=== PATIENT | male | born 1985 | race Caucasian/White ===

== ENCOUNTER 2016-10-11 17:51 | Inpatient (IN) | payer MEDICAID ==
[~2016-10-11] VITALS: Ht 175.3 cm; Wt 68.0 kg
--- NOTE | 2016-10-11 17:51 | NUR ---
1745--PT BIBA TO BED 3 AT THIS TIME
[2016-10-11 17:52] VITALS: BP 146/96
--- NOTE | 2016-10-11 17:52 | NUR ---
Pt arrived in C-spine precautions with hard C-collar in place. ED Physician notified.
--- NOTE | 2016-10-11 17:55 | NUR ---
31 YO MALE BIB EMS FROM HOME EXPERIENCED SPONTANOUS NOSE BLEED AND THEN HAD SYNCOPAL EPISODE. AAOx4 ON ARRIVAL. PT STATES HE HAS HX OF LUNG CA. PERRLA, BREATHING EVEN AND UNLABORED. PAIN 2/10 NECK PAIN DUE TO SYNCOPAL EPISODE. ERMD NOTIFIED OF PATIENT STATUS.
--- NOTE | 2016-10-11 17:58 | NUR ---
Patient being evaluated by physician at bedside.
--- NOTE | 2016-10-11 18:20 | NUR ---
PT RESTING, FAMILY AT BEDSIDE; PATIENTRESTING, FAMILY AT BEDISDE; VSS; PATIENT POSITIONED FOR COMFORT; BEDRAILS UP X2; BED DOWN. ER MD MADE AWARE OF PT STATUS.
[2016-10-11 18:25] LABS: BASOPHILS # (AUTO) 0.1 K/uL (0.00-0.22); BASOPHILS % (AUTO) 1.3 % (0.0-2.0); EOSINOPHILS # (AUTO) 0.1 K/uL (0-0.4); HEMATOCRIT 46.3 % (36-52); HEMOGLOBIN 15.1 g/dL (12.0-18.0); LYMPHOCYTES % (AUTO) 22.4 % (20.5-51.1); MEAN CORPUSCULAR HEMOGLOBIN 28 pg (27-31); MEAN CORPUSCULAR HGB CONC 33 g/dL (33-37); MEAN CORPUSCULAR VOLUME 87 fL (80-94); MONOCYTES % (AUTO) 11.6 % (1.7-9.3); NEUTROPHILS # (AUTO) 5.8 K/uL (1.8-7.7); NEUTROPHILS % (AUTO) 63.7 % (42.2-75.2); PLATELET COUNT (AUTO) 279 K/uL (140-450); RED BLOOD CELL COUNT(AUTO) 5.32 MIL/uL (4.20-6.10); RED CELL DISTRIBUTION WIDTH 13.2 % (11.6-13.7)
--- NOTE | 2016-10-11 18:29 | NUR ---
PT TAKEN TO RADIOLOGY VIA GURNEY BY X-RAY [facility].
[2016-10-11 18:40] LABS: ANION GAP 9.2 (8-16); CARBON DIOXIDE 30.6 mmol/L (21-32); CHLORIDE 103 mmol/L (98-107); CREATININE 1.2 mg/dL (0.6-1.3); GFR ARICAN-AMERICAN 91 mL/min (>90); GFR NON ARICAN-AMERICAN 76 mL/min (>90); GLUCOSE 95 mg/dL (74-106); POTASSIUM 3.8 mmol/L (3.5-5.1); SODIUM SERUM 139 mmol/L (136-145); UREA NITROGEN, BLOOD 16 mg/dL (7-18)
--- NOTE | 2016-10-11 18:44 | NUR ---
PT RETURNED FROM RADIOLOGY VIA [facility] BY [employer].
[2016-10-11 18:45] LABS: INR 1.1 (0.8-1.2); PROTHROMBIN TIME 10.8 secs (10.8-13.4)
[2016-10-11 18:47] LABS: ACETAMINOPHEN 0.5 ug/ml (10-30); ALANINE AMINOTRANSFERASE 23 U/L (12-78); ALBUMIN 3.3 g/dL (3.4-5.0); ALCOHOL, BLOOD < 3 mg/dL (<3); ALKALINE PHOSPHATASE 48 U/L (46-116); ASPARTATE AMINOTRANSFERASE 15 U/L (15-37); CREATINE KINASE, TOTAL 70 U/L (39-308); SALICYLATE < 2.8 mg/dL (2.8-20.0); TOTAL BILIRUBIN 0.2 mg/dL (0.0-1.0); TOTAL PROTEIN, SERUM 6.4 g/dL (6.4-8.2)
[2016-10-11 19:04] LABS: AMPHETAMINE, URINE POS. ng/ml (NEG <=1000); BARBITURATE, URINE NEG. ng/ml (NEG <=200); BENZODIAZEPINE, URINE NEG. ng/mL (NEG <=200); CANNABINOID, URINE NEG. ng/mL (NEG <=50); COCAINE, URINE NEG. ng/mL (NEG <=300); OPIATE, URINE NEG. ng/mL (NEG <=2000); PHENCYCLIDINE SCREEN,URINE NEG. ng/mL (NEG <=25)
--- NOTE | 2016-10-11 19:05 | NUR ---
Pt report given to PITER STROUD. Transfer of care at this time.
--- NOTE | 2016-10-11 19:08 | NUR ---
PT RESTING IN BED, SLEEPING,ON THE MONITOR, VSS. NO S/S OF DISTRESS NOTED AT THIS MOMENT. FAMILY AT BEDSIDE.
[2016-10-11] MEDS ORDERED: HYDROmorphone 1 MG/ML AMP IVP ONE (20:05)
--- NOTE | 2016-10-11 20:15 | NUR ---
Patient will be admitted to care of [facility]. Admited to TELEMETRY. Will go to room 111A. Belongings list completed. Report to PITER MALCOLM.
--- NOTE | 2016-10-11 20:30 | NUR ---
PT TRASFEERED TO TELEMETRY FLOOR. ACCOMPANIED BY RN AND EMT. STRATIGRAPHER IN BED. NO S/S OF DISTRESS NOTED DURING TRASFER.
[2016-10-11] MEDS ORDERED: ACETAMINOPHEN 325 MG TAB PO PRN (20:50)
[2016-10-11] MEDS ORDERED: DOCUSATE SODIUM 100 MG GELCAP PO PRN (20:50)
[2016-10-11] MEDS ORDERED: LORazepam 2 MG/ML VIAL IVP PRN (20:50)
[2016-10-11] MEDS ORDERED: ONDANSETRON 4 MG/2 ML VIAL IVP PRN (20:50)
[2016-10-11 21:00] VITALS: BP 113/72
--- NOTE | 2016-10-11 21:00 | NUR ---
ADMITTED 31 Y/O MALE TO TELE FROM ER AT 2024 PM WITH DX: SEIZURE. INITIAL ASSESSMENT, BODY CHECK AND ADMISSION INTERVENTION DONE. PATIENT AAO X 4, ABLE TO FOLLOW COMMAND AND MAKE NEEDS KNOWN AND AMBULATORY BY SELF WITH STEADY GAIT. NO S/S OF DISTRESS NOR SEIZURE NOTED UPON ADMISSION. SKIN WARM/DRY TO TOUCH WITH NORMAL COLOR AND INTACT. LUNG SOUNDS CLEAR TO ALL LOBES. INSTRUCTED PATIENT TO UNIT/ENVIRONMENT. ALSO, DISCUSSED PLAN OF CARE, PAIN MANAGEMENT AND MEDICATION REGIMEN WITH PATIENT AND PATIENT VERBALIZED UNDERSTANDING. PLACED PATIENT ON SEIZURE/SAFETY PRECAUTIONS AND WILL CONTINUE TO MONITOR. CALL LIGHT LEFT WITHIN REACH. GRANDMOTHER AT BEDSIDE.
[2016-10-11 21:22] LABS: CHOL/HDL RATIO 3.1 (1-4.5); MAGNESIUM 1.8 mg/dL (1.8-2.4); PHOSPHORUS 4.6 mg/dL (2.5-4.9)
[2016-10-11] MEDS: NACL 0.9% 1,000 ML IV SCH (21:29)
[2016-10-11] MEDS: MORPHINE SULFATE 2 MG/ML SYR IVP PRN (21:29)
[2016-10-11 21:32] LABS: AMPHETAMINE, URINE POS. ng/ml (NEG <=1000); BARBITURATE, URINE NEG. ng/ml (NEG <=200); BENZODIAZEPINE, URINE NEG. ng/mL (NEG <=200); CANNABINOID, URINE NEG. ng/mL (NEG <=50); COCAINE, URINE NEG. ng/mL (NEG <=300); OPIATE, URINE NEG. ng/mL (NEG <=2000); PHENCYCLIDINE SCREEN,URINE NEG. ng/mL (NEG <=25)
[2016-10-11 21:39] LABS: THYROID STIMULATING HORMONE 0.98 uIU/mL (0.34-3.76)
--- NOTE | 2016-10-11 22:16 | NUR ---
ADMINISTERED IVF AND PAIN MEDICATION FOR C/O LOWER BACK AND CHEST PAIN WITH EDUCATION GIVEN. ALSO GAVE 1 PAIR OF SANDWICH AND ICE-WATER PER REQUESTED. PATIENT CONSUMED 100 % AND TOLERATED WELL. ALL NEEDS ARE ATTENDED. PLACED PATIENT IN COMFORTABLE POSITION/WARM AND WILL CONTINUE TO MONITOR.
[2016-10-12] VITALS: BP 102/49
--- NOTE | 2016-10-12 00:14 | NUR ---
ROUNDS MADE, SEEN PATIENT RESTED COMFORTABLY IN BED, EASILY AROUSED AND REMAINED IN STABLE CONDITION. NO ANY POTENTIAL COMPLICATION NOTED. WILL CONTINUE TO MONITOR.
--- NOTE | 2016-10-12 03:50 | NUR ---
PATIENT IS CLINICALLY STABLE WITH UNCHANGED V/S. WILL CONTINUE TO MONITOR.
[2016-10-12 04:00] VITALS: BP 95/58
[2016-10-12] MEDS: NACL 0.9% 1,000 ML IV SCH ×2 (04:20→15:02)
--- NOTE | 2016-10-12 07:20 | NUR ---
RECEIVED PATIENT REPORT AT BEDSIDE. NO S/S OF DISTRESS NOTED. PATIENT ASLEEP BUT EASILY AROUSABLE. FAMILY MEMBER PRESENT AT BEDSIDE. SEIZURE PRECAUTIONS IN PLACE. IV TO THE LEFT AC INTACT WITH IVF INFUSING WELL. PATIENT ON TELE MONITORING. BED LOWERED WITH CALL LIGHT WITHIN REACH. WILL CONTINUE TO MONITOR
--- NOTE | 2016-10-12 07:22 | NUR ---
PATIENT RESTED WELL THROUGHOUT THE SHIFT AND REMAINED IN STABLE CONDITION WITHOUT APPARENT DISTRESS NOTED. ENDORSED PLAN OF CARE TO PITER LOZOYA, AT BEDSIDE.
--- NOTE | 2016-10-12 07:53 | NUR ---
PATIENT HAS BEEN SCREENED AND CATEGORIZED LOW NUTRITION RISK. PATIENT WILL BE SEEN WITHIN 7 DAYS OF ADMISSION. 10/18/[address]
[2016-10-12 08:00] VITALS: BP 105/63
[2016-10-12] MEDS ORDERED: ATORVASTATIN 20 MG TAB PO SCH ×2 (10:50→11:00)
[2016-10-12] MEDS ORDERED: ECOTRIN 81 MG TABEC PO SCH ×2 (10:50→11:00)
--- NOTE | 2016-10-12 11:00 | NUR ---
PATIENT LEFT FOR CT
--- NOTE | 2016-10-12 11:57 | NUR ---
PT C/O OF 610 BACK PAIN. HEART RATE AT 55. PATIENT OFFERED TYLENOL BUT REFUSED
[2016-10-12 12:00] VITALS: BP 101/60
[2016-10-12] MEDS: MORPHINE SULFATE 2 MG/ML SYR IVP PRN (12:10)
[2016-10-12] MEDS ORDERED: ALBUTEROL SULFATE/IPRATROPIU 3 ML SOL IH PRN (15:35)
[2016-10-12 16:00] VITALS: BP 124/71
--- NOTE | 2016-10-12 16:00 | NUR ---
PATIENT REFUSED TO BE BATHED
--- NOTE | 2016-10-12 18:11 | NUR ---
ASKED CONSENT FROM THE PATIENT TO OBTAIN MEDICAL RECORDS FROM [facility] BUT PATIENT DENIES BEING THERE. DR EVANGELISTA NOTIFIED
--- NOTE | 2016-10-12 19:30 | NUR ---
RECEIVED REPORT FROM DAY RN AT BEDSIDE, PATIENT IS SLEEPING IN BED, EASILY AWOKEN, PATIENT AAOX4, ON ROOM AIR, NO SOB OR SIGN OF DISTRESS AT THIS TIME, PATIENT DENIES PAIN, IV TO LAC PATENT AND INTACT WITH IVF INFUSING WELL. SKIN IS INTACT. DISCUSSED PLAN OF CARE WITH PATIENT, PATIENT VERBALIZED UNDERSTANDING, SAFETY MEASURES CHECKED, PATIENT ON SEIZURE PRECAUTIONS, CALL LIGHT WITHIN REACH. WILL CONTINUE TO MONITOR.
--- NOTE | 2016-10-12 19:30 | NUR ---
ENDORSED CONTINUITY OF CARE TO THE NIGHT NURSE. PATIENT IN STABLE IN CONDITION
[2016-10-12 20:00] VITALS: BP 109/70
[2016-10-12] MEDS: CLOTRIMAZOLE 1% 30 GM CRM TUBE TP SCH (20:56)
[2016-10-13] VITALS (7 sets, daily range): BP systolic 103–135; BP diastolic 49–78
--- NOTE | 2016-10-13 00:30 | NUR ---
PATIENT AWAKE RESTING IN BED, NO SOB OR SIGN OF DISTRESS, VITAL SIGNS STABLE, DENIES PAIN, CALL LIGHT WITHIN REACH. WILL CONTINUE TO MONITOR.
[2016-10-13] MEDS: NACL 0.9% 1,000 ML IV SCH ×3 (00:41→18:20)
--- NOTE | 2016-10-13 02:17 | NUR ---
PATIENT SLEEPING, NO SOB OR SIGN OF DISTRESS AT THIS TIME, CALL LIGHT WITHIN REACH. WILL CONTINUE TO MONITOR.
--- NOTE | 2016-10-13 04:15 | NUR ---
PATIENT SLEEPING, AWAKES EASILY, NO SIGN OF DISTRESS, CALL LIGHT WITHIN REACH. WILL CONTINUE TO MONITOR.
--- NOTE | 2016-10-13 06:10 | NUR ---
PATIENT SLEEPING, NO SOB OR SIGN OF DISTRESS, CALL LIGHT WITHIN REACH. WILL CONTINUE TO MONITOR.
[2016-10-13 06:50] LABS: BASOPHILS # (AUTO) 0.2 K/uL (0.00-0.22); BASOPHILS % (AUTO) 2.4 % (0.0-2.0); EOSINOPHILS # (AUTO) 0.1 K/uL (0-0.4); EOSINOPHILS % (AUTO) 1.9 % (0.0-4.0); HEMATOCRIT 44.5 % (36-52); HEMOGLOBIN 14.7 g/dL (12.0-18.0); LYMPHOCYTES # (AUTO) 2.4 K/uL (2.0-11.5); LYMPHOCYTES % (AUTO) 31.7 % (20.5-51.1); MEAN CORPUSCULAR HEMOGLOBIN 29 pg (27-31); MEAN CORPUSCULAR HGB CONC 33 g/dL (33-37); MEAN CORPUSCULAR VOLUME 88 fL (80-94); MONOCYTES # (AUTO) 0.9 K/uL (0.8-1.0); MONOCYTES % (AUTO) 12.5 % (1.7-9.3); NEUTROPHILS % (AUTO) 51.5 % (42.2-75.2); PLATELET COUNT (AUTO) 259 K/uL (140-450); RED BLOOD CELL COUNT(AUTO) 5.05 MIL/uL (4.20-6.10); RED CELL DISTRIBUTION WIDTH 13.4 % (11.6-13.7); WHITE BLOOD COUNT (AUTO) 7.6 K/uL (4.8-10.8)
[2016-10-13 07:01] LABS: ANION GAP 8.6 (8-16); CALCIUM 7.5 mg/dL (8.5-10.1); CARBON DIOXIDE 29.5 mmol/L (21-32); CREATININE 0.8 mg/dL (0.6-1.3); POTASSIUM 4.1 mmol/L (3.5-5.1)
[2016-10-13 07:07] LABS: MAGNESIUM 1.7 mg/dL (1.8-2.4); PHOSPHORUS 3.8 mg/dL (2.5-4.9)
--- NOTE | 2016-10-13 07:20 | NUR ---
ENDORSED PATIENT TO DAY SHIFT RN AT BEDSIDE, PATIENT IS IN STABLE CONDITION.
--- NOTE | 2016-10-13 07:21 | NUR ---
RECEIVED REPORT FROM THE AUDIO VISUAL COLLECTIONS COORDINATOR NURSE AT BEDSIDE FOR CONTINUITY OF CARE. PT IS ASLEEP. WILL NOT WAKE HIM. WILL CHECK ON HIM LATER. NOTED THAT THE IV IS SL. PER RN, PT WANTED THE IV DISCONTINUE WHILE HE SLEPT. NOTED NO SIGNS OF DISTRESS. ALL SAFETY MEASURES IN PLACE. WILL CONTINUE TO MONITOR PT.
--- NOTE | 2016-10-13 08:05 | NUR ---
PT STILL ASLEEP. TELE MONITOR STATED HIS HR WAS LOW. I WOKE HIM UP AND INTRODUCED MYSELF AND UPDATED THE BOARD. DID HIS VITALS. ALL WITHIN NORMAL RANGE. I TOLD HIM HIS BREAKFAST WAS HERE BUT HE WAS NOT INTERESTED IN EATING. HE WANTS TO JUST SLEEP. I TOLD HIM I WILL BE BACK IN ABOUT AN HOUR FOR HIS MORNING MEDS. WILL CONTINUE TO MONITOR PT.
--- NOTE | 2016-10-13 09:00 | NUR ---
SPOKE TO DR. EVANGELISTA ABOUT PT'S LOW MAG LEVEL. DR. DENSON.
[2016-10-13] MEDS: ECOTRIN 81 MG TABEC PO SCH (09:01)
[2016-10-13] MEDS: ATORVASTATIN 20 MG TAB PO SCH (09:02)
[2016-10-13] MEDS: CLOTRIMAZOLE 1% 30 GM CRM TUBE TP SCH ×2 (09:03→20:41)
--- NOTE | 2016-10-13 09:50 | NUR ---
RESTARTED THE HEPARIN DRIP, LOWERED THE RATE TO 19ML/HR. IS HERE. ANSWERED ALL QUESTIONS. SHE WANTED SOME CLEAN TOWELS AND A NEW GOWN. SUPPLIED THEM TO HER. PT IS STABLE. WILL CONTINUE TO MONITOR PT. Addendum: 10/13/16 at 1014 by Sigrid Sy RN WRONG PT.
--- NOTE | 2016-10-13 10:17 | NUR ---
PT SLEEPING SOUNDLY WILL CONTINUE TO MONITOR PT.
[2016-10-13] MEDS: MAGNESIUM OXIDE 400 MG TAB PO SCH ×2 (10:31→20:41)
--- NOTE | 2016-10-13 11:00 | NUR ---
WOKE UP AND WANTED A SNACK. ORDERED HIM A TUNA [employer] SANDWICH. ATE AND WENT BACK TO SLEEP. GRANDPARENT AT BEDSIDE. WILL CONTINUE TO MONIOTOR PT.
--- NOTE | 2016-10-13 13:32 | NUR ---
PT SLEEPING. FINISHED 100% OF LUNCH. WENT RIGHT BACK TO SLEEP. NO SIGNS OF DISTRESS. WILL CONTINUE TO MONITOR PT.
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
--- NOTE | 2016-10-13 16:27 | NUR ---
PT RESTING IN BED. GIRLFRIEND AND GRANDMOTHER AT BEDSIDE. WILL CONTINUE TO MONITOR PT.
[2016-10-13] MEDS: MORPHINE SULFATE 2 MG/ML SYR IVP PRN ×2 (18:15→23:48)
--- NOTE | 2016-10-13 19:05 | NUR ---
ENDORSED PT TO THE MARKETING CONSULTANT NURSE AT BEDSIDE FOR CONTINUITY OF CARE. PT IS IN STABLE CONDITION. GRANDMA WILL STAY WITH HIM OVER NIGHT. PAIN IS BETTER.
--- NOTE | 2016-10-13 19:27 | NUR ---
RECEIVED IN BED AWAKE AND ALERT. ORIENTED X 4. NO SOB. DENIES PAIN AT THIS TIME. TELEMETRY MONITORING. CALL LIGHT WITH IN REACH. CARE PLAN FOR THE NIGHT DISCUSSED WITH HIM. VISITOR AT BEDSIDE. ENCOURAGED TO CALL FOR ANY HEL0P HE MAY NEED. WITH PADDED SIDERAILS RT SEIZURE PRECAUTIONS.
--- NOTE | 2016-10-13 22:21 | NUR ---
PT. SLEEPING AT THIS TIME. NO RESTLESSNESS NOTED. ON TELEMETRY MONITORING. WITH PADDED SIDERAILS FOR SEIZURE PRECAUTIONS. ABLE TO USE CALL LIGHT FOR HELP.
--- NOTE | 2016-10-13 23:59 | NUR ---
WOKE UP AND REQUESTED FOR PAIN RELIEVER. MEDICATED REQUESTED. NO FURTHER COMPLAINTS DONE. TELEMETRY MONITORING.
--- NOTE | 2016-10-14 00:38 | NUR ---
PT. AWAKE AT THIS TIME. MOTHER AT BEDSIDE AND REQUESTED FOR SNACK. PROVIDED WITH SANDWICH AND ORANGE DRINK . NO FURTHER REQUEST MADE. USES CALL LIGHT FOR HELP.
[2016-10-14] MEDS: NACL 0.9% 1,000 ML IV SCH ×2 (03:26→12:32)
--- NOTE | 2016-10-14 04:00 | NUR ---
PT. REQUESTED TO HAVE IVF STOPPED. REFUSED TO HAVE IT HOOKED BACK. PREFERS TO DRINK . PROS AND CONS EXPLAINED TO PT. MOTHER AT BEDSIDE STILL. TELEMETRY MONITORING. NO SEIZURES NOTED.
[2016-10-14 04:56] VITALS: BP 122/68
--- NOTE | 2016-10-14 06:31 | NUR ---
SLEPT WELL THIS SHIFT. NO UNTOWARD INCIDENT. CALL LIGHT WITH IN REACH AT ALL TIMES. NO SEIZURES THIS SHIFT. ON TELEMETRY MONITORING.
--- NOTE | 2016-10-14 07:05 | NUR ---
RECEIVED REPORT FROM THE DONKEY RIDE OPERATOR NURSE AT BEDSIDE FOR CONTINUITY OF CARE. PT IS SOUND ASLEEP. NO SIGNS OF DISTRESS. WILL CONTINUE TO MONITOR PT.
[2016-10-14 07:10] LABS: ALBUMIN 3.1 g/dL (3.4-5.0); ANION GAP 6.8 (8-16); CALCIUM 7.9 mg/dL (8.5-10.1); CARBON DIOXIDE 32.4 mmol/L (21-32); MAGNESIUM 1.8 mg/dL (1.8-2.4); PHOSPHORUS 4.1 mg/dL (2.5-4.9); POTASSIUM 4.2 mmol/L (3.5-5.1)
--- NOTE | 2016-10-14 07:55 | NUR ---
WOKE UP PT. RE-INTRODUCED MYSELF, UPDATED THE BOARD. I ASKED HIM WHERE GRANDMA WAS. SHE WENT TO THE [place] PER PT. PT'S IV ON L AC IS SL. V/S WITHIN NORMAL RANGE. STILL SB. ONCE DC ORDER IS IN PLACE, WILL START ON DC TODAY. NOTIFIED PT REGARDING DC TODAY. PT AWARE. HASN'T TOUCHED HIS BREAKFAST YET. CALL LIGHT WITHIN REACH. WILL CONTINUE TO MONITOR PT.
[2016-10-14 08:00] VITALS: BP 106/79
[2016-10-14] MEDS: CLOTRIMAZOLE 1% 30 GM CRM TUBE TP SCH (09:11)
[2016-10-14] MEDS: ECOTRIN 81 MG TABEC PO SCH (09:11)
[2016-10-14] MEDS: ATORVASTATIN 20 MG TAB PO SCH (09:11)
--- NOTE | 2016-10-14 09:45 | NUR ---
PT SLEEPING. NO SIGNS OF DISTRESS. WILL CONTINUE TO MONITOR PT.
--- NOTE | 2016-10-14 11:16 | NUR ---
PT IS SLEEPING. GRANDMOTHER SLEEPING AT HIS SIDE. NO SIGNS OF DISTRESS. WILL CONTINUE TO MONITOR PT.
[2016-10-14 12:00] VITALS: BP 119/70
[2016-10-14] MEDS ORDERED: LORA-476 PO (12:33)
--- NOTE | 2016-10-14 13:15 | NUR ---
PT RESTING COMFORTABLY WITH GRANDMA AT BEDSIDE. NO COMPLAINTS AT THIS TIME. WILL CONTINUE TO MONITOR PT.
[2016-10-14] MEDS: MORPHINE SULFATE 2 MG/ML SYR IVP PRN (13:23)
--- NOTE | 2016-10-14 15:30 | NUR ---
GAVE PT D/C INSTRUCTIONS AT BEDSIDE. GRANDMOTHER PRESENT. ANSWERED ALL QUESTIONS. PT AND GRANDMOTHER VERBALIZED UNDERSTANDING. HE WILL F/U WITH A PCP IN A CLINIC IN [place]. [facility]. A [employer]MON[employer] MEMBER WILL COME CENTER MEDICAL SPECIALIST PT AND GRANDMOTHER AT 4:40-5PM. REMOVED IV, CANNULA INTACT. REMOVED ARM BANDS. PT WILL GET DRESSED INTO HIS OWN CLOTHES. WILL GET HIS PERSONAL BELONGINGS TOGETHER. WILL BE READY WHEN RIDE GETS HERE. WILL LET ME KNOW WHEN HE IS READY TO GO SO THAT WE CAN WHEEL HIM OUT.
[2016-10-14 16:00] VITALS: BP 118/65
--- NOTE | 2016-10-14 17:00 | NUR ---
PT WAS WHEELED OUT, ACCOMPANIED BY GRANDMA AND SENIOR DIRECTOR INSIGHT. PT IS IN STABLE CONDITION. PT HAS ALL HIS PERSONAL BELONGINGS WITH HIM.
== END 2016-10-14 17:00 | disposition home or self-care (01) | DRG 52 ==
LOC: MED 17:51 → MTU 19:59
PROVIDERS: ADMIT Family Medicine; ATTEND Family Medicine
DX: G92 Toxic encephalopathy (principal); R56.9 Unspecified convulsions; E44.0 Moderate protein-calorie malnutrition; E83.42 Hypomagnesemia; E83.51 Hypocalcemia; B35.3 Tinea pedis; B35.4 Tinea corporis; F17.210 Nicotine dependence, cigarettes, uncomplicated; F15.188 Other stimulant abuse with other stimulant-induced disorder; W18.30XA Fall on same level, unspecified, initial encounter; Z68.22 Body mass index [BMI] 22.0-22.9, adult; Q16.1 Congenital absence, atresia and stricture of auditory canal (external); Z72.89 Other problems related to lifestyle; Z59.0 Homelessness; Y93.89 Activity, other specified; Y92.091 Bathroom in other non-institutional residence as the place of occurrence of the external cause; Y99.8 Other external cause status; Z85.118 Personal history of other malignant neoplasm of bronchus and lung; Z81.8 Family history of other mental and behavioral disorders; Z71.51 Drug abuse counseling and surveillance of drug abuser
CPT/HCPCS: 36415; 70450; 71010; 71250; 72125; 80048; 80053; 80305; 82040; 82150; 82550; 83036; 83605; 83690; 83735; 83880; 84100; 84443; 84484; 85025; 85610; 85730; 87081; 93005; 93880; 96374; 99285; G0480; G0482; J1170; J2270; J7030; Q0092

== ENCOUNTER 2017-04-09 00:30 | Emergency (ER) | payer SELFPAY ==
[~2017-04-09] VITALS: Ht 167.6 cm; Wt 61.5 kg
[~2017-04-09 00:30] MED LIST: LORA-476 PO
--- NOTE | 2017-04-09 00:36 | NUR ---
called pt in lobby for triage no answer
--- NOTE | 2017-04-09 01:14 | NUR ---
PT. AMBULATES TO ER BED 7
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
[2017-04-09] MEDS ORDERED: PIPERACILLIN/TAZOBACTAM 3.375 GM in DEXTROSE 5% 50 ML IV ONE (01:30)
[2017-04-09] MEDS ORDERED: VANCOMYCIN 1,000 MG in DEXTROSE 5% 250 ML IV ONE (01:30)
[2017-04-09] MEDS ORDERED: NACL 0.9% 1,000 ML IV ONE (01:30)
[2017-04-09 01:40] LABS: HEMATOCRIT 39.3 % (36-52); HEMOGLOBIN 13.2 g/dL (12.0-18.0); MEAN CORPUSCULAR HEMOGLOBIN 29 pg (27-31); MEAN CORPUSCULAR HGB CONC 34 g/dL (33-37); MEAN CORPUSCULAR VOLUME 87 fL (80-94); PLATELET COUNT (AUTO) 465 K/uL (140-450); RED BLOOD CELL COUNT(AUTO) 4.52 MIL/uL (4.20-6.10); RED CELL DISTRIBUTION WIDTH 13.3 % (11.6-13.7); WHITE BLOOD COUNT (AUTO) 10.6 K/uL (4.8-10.8)
[2017-04-09] MEDS ORDERED: PIPERACILLIN/TAZOBACTAM 3.375 GM VIAL IV ONE (01:45)
[2017-04-09] MEDS ORDERED: VANCOMYCIN 1,000 MG VIAL ONE (01:45)
[2017-04-09 01:50] LABS: ANION GAP 9.6 (8-16); CARBON DIOXIDE 33.7 mmol/L (21-32); CREATININE 1.3 mg/dL (0.7-1.3); POTASSIUM 4.3 mmol/L (3.5-5.1)
[2017-04-09 01:56] LABS: LYMPHOCYTES % (MANUAL) 48 % (20-46)
[2017-04-09 01:57] LABS: MONOCYTES % (MANUAL) 5 % (5-12)
[2017-04-09 01:58] LABS: PROTHROMBIN TIME 10.5 secs (10.8-13.4)
--- NOTE | 2017-04-09 02:03 | NUR ---
IVPB/IM MEDS GIVEN-NADR AT THIS TIME.
--- NOTE | 2017-04-09 03:47 | NUR ---
Patient appears to be resting comfortably in bed. Vital Signs within normal limits. Respirations even and unlabored.
--- NOTE | 2017-04-09 05:56 | NUR ---
Patient appears to be resting comfortably in bed. Vital Signs within normal limits. Respirations even and unlabored.
--- NOTE | 2017-04-09 05:57 | NUR ---
Patient to be transferred to [facility]. Is being transferred due to CONTINUATION OF CARE. Receiving facility has accepting physician and available space. ER physician has signed transfer form. Patient or responsible green party has agreed to transfer and signed form. Patient belongings inventoried and will be sent with patient. Copy of nursing notes, lab reports, EKG, Physicians Orders and X-rays to be sent with patient. Report called to PITER CALABRESE at receiving facility. [facility] ambulance service has been called for transfer. ETA is 30-45 MINS.
[2017-04-09 06:42] VITALS: BP 108/64
--- NOTE | 2017-04-09 06:43 | NUR ---
[facility] ARRIVED. PT. TRANSFERRED TO [facility], NO S/SX OF DISTRESS UPON TRANSFER.
== END 2017-04-09 06:42 | disposition short-term general hospital (02) ==
LOC: MED 00:30
DX: M65.841 Other synovitis and tenosynovitis, right hand (principal); L98.499 Non-pressure chronic ulcer of skin of other sites with unspecified severity; F17.210 Nicotine dependence, cigarettes, uncomplicated; F19.90 Other psychoactive substance use, unspecified, uncomplicated; Z79.899 Other long term (current) drug therapy
CPT/HCPCS: 36415; 73140; 80048; 85025; 85610; 85651; 86140; 90471; 90715; 96365; 96366; 96375; 99285; J2543; J3370; J7030; J7060; Q0092

== ENCOUNTER 2017-10-31 17:37 | Emergency (ER) | payer MEDICAID ==
[~2017-10-31] VITALS: Ht 167.6 cm; Wt 73.5 kg
[2017-10-31 17:40] VITALS: BP 146/112
--- NOTE | 2017-10-31 17:53 | NUR ---
PT BIBA BLS FOR HEAD LAC TO BED 11
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
--- NOTE | 2017-10-31 19:09 | NUR ---
GAVE REPORT TO BLUE DUMAS
[2017-10-31] MEDS ORDERED: ONDANSETRON 4 MG ODT PO ONE (19:30)
[2017-10-31] MEDS ORDERED: BACITRACIN OINT 500 UNITS/GM PKT TP ONE (19:31)
[2017-10-31 20:52] VITALS: BP 145/82
--- NOTE | 2017-10-31 20:52 | NUR ---
Patient discharged with v/s stable. Written and verbal after care instructions given and explained. Patient alert, oriented and verbalized understanding of instructions. Ambulatory with steady gait. All questions addressed prior to discharge. ID band removed. Patient advised to follow up with PMD. Rx of ZOFRAN 4MG AND MOTRIN 800MG given. Patient educated on indication of medication including possible reaction and side effects. Opportunity to ask questions provided and answered.
== END 2017-10-31 20:52 | disposition home or self-care (01) ==
LOC: MED 17:37
DX: S06.0X9A Concussion with loss of consciousness of unspecified duration, initial encounter (principal); W18.39XA Other fall on same level, initial encounter; Y93.89 Activity, other specified; Y99.8 Other external cause status; Y92.89 Other specified places as the place of occurrence of the external cause
CPT/HCPCS: 70450; 90471; 90715; 99284; S0119

== ENCOUNTER 2019-01-30 23:50 | Emergency (ER) | payer MEDICAID, OTHER ==
[~2019-01-30] VITALS: Ht 175.3 cm; Wt 77.1 kg
--- NOTE | 2019-01-30 23:50 | NUR ---
PT BROUGHT IN ALS TO ER BED 02
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
[2019-01-30 23:55] VITALS: BP 119/70
[2019-01-30] MEDS ORDERED: NACL 0.9% 1,000 ML IV ONE (23:55)
--- NOTE | 2019-01-31 00:10 | NUR ---
Pt IV in left AC is infiltrated. IV removed and new IV started in right AC 20 gauge.
--- NOTE | 2019-01-31 01:00 | NUR ---
Pt resting in bed with eyes closed, easily arrousable. VSS. Will continue to monitor.
--- NOTE | 2019-01-31 02:10 | NUR ---
PT resting in bed comfortably, easily arrousable. VSS. Will continue to monitor.
--- NOTE | 2019-01-31 03:25 | NUR ---
pt ambulated to restroom
--- NOTE | 2019-01-31 03:40 | NUR ---
Patient discharged with v/s stable. Written and verbal after care instructions given and explained to limit alcohol consumption. Patient verbalized understanding. Ambulatory with steady gait. All questions addressed prior to discharge.
[2019-01-31 03:48] VITALS: BP 102/61
== END 2019-01-31 03:40 | disposition home or self-care (01) ==
LOC: MED 23:50
DX: F10.129 Alcohol abuse with intoxication, unspecified (principal); Z79.899 Other long term (current) drug therapy
CPT/HCPCS: 93005; 99284; J7030; 36415

== ENCOUNTER 2020-06-15 16:42 | Emergency (ER) | payer MEDICAID, OTHER ==
[~2020-06-15] VITALS: Ht 170.2 cm; Wt 65.8 kg
[2020-06-15 16:49] VITALS: BP 131/88
--- NOTE | 2020-06-15 16:55 | NUR ---
Pt c/o spider bite with erythema and edema on the left posterior knee for 2 days. Pt denies having allergic reaction from the bite. Pt states he has gonorrhea and syphillis and wanted to get treated. PMH: HLD, GONORRHEA, SYPHILLIS MEDS: NONE
[2020-06-15] MEDS ORDERED: AZITHROMYCIN 250 MG TAB PO ONE (17:10)
[2020-06-15] MEDS ORDERED: cefTRIAXone 250 MG in LIDOCAINE MPF 1% 0.9 ML IM ONE (17:10)
[2020-06-15] MEDS ORDERED: PENICILLIN G BENZATHINE L-A 1.2 MU/2 ML SYR IM ONE (17:10)
[2020-06-15] MEDS ORDERED: cefTRIAXone 250 MG VIAL ONE (17:25)
[2020-06-15] MEDS ORDERED: LIDOCAINE MPF 1% 5 ML ONE (17:26)
[2020-06-15 18:05] VITALS: BP 122/78
== END 2020-06-15 18:05 | disposition home or self-care (01) ==
LOC: MED 16:42
DX: L03.116 Cellulitis of left lower limb (principal); A64 Unspecified sexually transmitted disease; R56.9 Unspecified convulsions; Z85.9 Personal history of malignant neoplasm, unspecified; Z79.899 Other long term (current) drug therapy; Z98.890 Other specified postprocedural states
CPT/HCPCS: 36415; 86592; 87491; 96372; 99284; J0561; J0696; J2001

== ENCOUNTER 2020-11-11 23:45 | Emergency (ER) | payer MEDICAID ==
[~2020-11-11] VITALS: Ht 165.1 cm; Wt 66.7 kg
[2020-11-11 23:53] VITALS: BP 119/84
--- NOTE | 2020-11-11 23:57 | NUR ---
MARY AMBUALTED TO LOBBY WITH STEADY GAIT.
--- NOTE | 2020-11-12 00:10 | NUR ---
PATIENT PRESENTS TO ED WITH C/O PELVIC PAIN . SKIN IS PINK/WARM/DRY; AAOX4 WITH EVEN AND STEADY GAIT; LUNGS CLEAR BL; HR EVEN AND REGULAR; PT DENIES ANY FEVER, CP, SOB, OR COUGH AT THIS TIME; VSS; PATIENT POSITIONED FOR COMFORT; HOB ELEVATED; BEDRAILS UP X2; BED DOWN. ER MD MADE AWARE OF PT STATUS.
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
[2020-11-12] MEDS ORDERED: DOXY100C9 PO (02:44)
[2020-11-12 02:45] VITALS: BP 118/72
[2020-11-12] MEDS ORDERED: cefTRIAXone 250 MG in LIDOCAINE MPF 1% 0.9 ML IM ONE (02:45)
[2020-11-12] MEDS ORDERED: LIDOCAINE MPF 1% 5 ML ONE (02:46)
[2020-11-12] MEDS ORDERED: cefTRIAXone 250 MG VIAL ONE (02:46)
== END 2020-11-12 02:50 | disposition home or self-care (01) ==
LOC: MED 23:45
DX: N45.1 Epididymitis (principal); F17.290 Nicotine dependence, other tobacco product, uncomplicated
CPT/HCPCS: 76870; 96372; 99284; J0696; J2001